=== PATIENT | male | born 1990 | race Caucasian/White ===

== ENCOUNTER 2018-07-23 14:46 | Emergency (ER) | payer OTHER ==
[2018-07-23] MEDS ORDERED: Ketorolac 60 MG/2 ML SDV IM ONE (14:59)
--- NOTE | 2018-07-23 15:01 | EDM.PDOC ---
ED HPI GENERAL MEDICAL PROBLEM - General Chief Complaint: Genitourinary Problem Stated Complaint: PAIN IN GROIN Time Seen by Provider: 07/23/18 14:58 Source of Information: Reports: Patient History Limitations: Reports: No Limitations - History of Present Illness INITIAL COMMENTS - FREE TEXT/NARRATIVE: HISTORY AND PHYSICAL: History of present illness: Patient is a 27-year-old male who presents to the emergency room with complaints of left testicular swelling and pain 1 week. Patient reports that he noticed this pain while working out approximately one week ago. He states the pain has been constant and nothing makes it better or worse at this time. He denies any concerns of STDs. Denies any penile drainage, lesions, or masses. Patient is able to void without any difficulty or dysuria. Patient denies any fever, chills, headache, change in vision, syncope or near syncope. Denies any chest pain, back pain, shortness of breath or cough. Denies any abdominal pain, nausea, vomiting, diarrhea, constipation or dysuria. Has not noted any blood in urine or stool. Patient has been eating and drinking appropriately. Review of systems: As per history of present illness and below otherwise all systems reviewed and negative. Past medical history: As per history of present illness and as reviewed below otherwise noncontributory. Surgical history: As per history of present illness and as reviewed below otherwise noncontributory. Social history: See social history for further information Family history: As per history of present illness and as reviewed below otherwise noncontributory. Physical exam: General: Well-developed and well-nourished 27-year-old male. Alert and oriented. Nontoxic appearing and in no acute distress. HEENT: Atraumatic, normocephalic, pupils equal and reactive bilaterally, negative for conjunctival pallor or scleral icterus, mucous membranes moist, TMs normal bilaterally, throat clear, neck supple, nontender, trachea midline. No drooling or trismus noted. No meningeal signs. No hot potato voice noted. Lungs: Clear to auscultation, breath sounds equal bilaterally, chest nontender. Heart: S1S2, regular rate and rhythm without overt murmur Abdomen: Soft, nondistended, nontender. Negative for masses or hepatosplenomegaly. Negative for costovertebral tenderness. Pelvis: Stable nontender. Genitourinary: This was done with a dental manager at the bedside and consent of the patient. The left testes does appear slightly enlarged in comparison of the right. No erythema noted. Does have tenderness with palpation. Positive cremesenteric reflex bilaterally. Unable to appreciate any hernias with testes exam. Rectal: Deferred. Skin: Intact, warm, dry. No lesions or rashes noted. Extremities: Atraumatic, moves all extremities per self with difficulty or deficits, negative for cords or calf pain. Neurovascular unremarkable. Neuro: Awake, alert, oriented. Cranial nerves II through XII unremarkable. Cerebellum unremarkable. Motor and sensory unremarkable throughout. Exam nonfocal. Notes: Ultrasound shows mild left varicocele. We discussed follow-up with urology. Supportive care measures were reviewed and discussed. Voices understanding and is agreeable to plan of care. Denies any further questions or concerns at this time. Diagnostics: CBC, CMP, UA, testicular/scrotal ultrasound Therapeutics: Toradol IM Prescription: Diclofenac (#30) Impression: Left varicocele Plan: 1. Light activity. Advance as tolerated. 2. Please follow-up with the urologist as we discussed. Return to the ED as needed and as discussed. Definitive disposition and diagnosis as appropriate pending reevaluation and review of above. Left testicle Pain Score (Numeric/FACES): 7 - Related Data Allergies Allergy/AdvReac Type Severity Reaction Status Date / Time No Known Allergies Allergy Verified 07/23/18 14:57 Home Meds: Home Meds . [No Known Home Meds] 07/23/18 [History] ED ROS GENERAL - Review of Systems Review Of Systems: ROS reveals no pertinent complaints other than HPI. ED EXAM, RENAL/ - Physical Exam Exam: See Below (See dictation) Course - Vital Signs Last Recorded V/S: Last Vital Signs Temp 97.1 F 07/23/18 14:57 Pulse 73 07/23/18 14:57 Resp 15 07/23/18 14:57 BP 127/81 07/23/18 14:57 Pulse Ox 97 07/23/18 14:57 - Orders/Labs/Meds Labs: Laboratory Tests 07/23/18 07/23/18 07/23/18 Range/Units 15:08 15:08 16:17 WBC 8.45 (4.0-11.0) K/uL RBC 5.55 (4.50-5.90) M/uL Hgb 16.1 (13.0-17.0) g/dL Hct 47.8 (38.0-50.0) % MCV 86.1 (80.0-98.0) fL MCH 29.0 (27.0-32.0) pg MCHC 33.7 (31.0-37.0) g/dL RDW Std Deviation 42.7 (28.0-62.0) fl RDW Coeff of Delgado 14 (11.0-15.0) % Plt Count 251 (150-400) K/uL MPV 9.30 (7.40-12.00) fL Neut % (Auto) 60.0 (48.0-80.0) % Lymph % (Auto) 27.6 (16.0-40.0) % [place] % (Auto) 9.6 (0.0-15.0) % Eos % (Auto) 2.1 (0.0-7.0) % Baso % (Auto) 0.7 (0.0-1.5) % Neut # (Auto) 5.1 (1.4-5.7) K/uL Lymph # (Auto) 2.3 (0.6-2.4) K/uL [place] # (Auto) 0.8 (0.0-0.8) K/uL Eos # (Auto) 0.2 (0.0-0.7) K/uL Baso # (Auto) 0.1 (0.0-0.1) K/uL Nucleated RBC % 0.0 /100WBC Nucleated RBCs # 0 K/uL Sodium 139 (136-148) mmol/L Potassium 4.1 (3.5-5.1) mmol/L Chloride 103 (98-107) mmol/L Carbon Dioxide 26.2 (21.0-32.0) mmol/L BUN 17 (7.0-18.0) mg/dL Creatinine 1.6 H (0.8-1.3) mg/dL Est Cr Clr Drug Dosing 71.61 mL/min Estimated GFR (MDRD) 52.1 ml/min Glucose 112 H (74-106) mg/dL Calcium 9.0 (8.5-10.1) mg/dL Total Bilirubin 1.0 (0.2-1.0) mg/dL AST 27 (15-37) IU/L ALT 43 (14-63) IU/L Alkaline Phosphatase 69 (46-116) U/L Total Protein 7.6 (6.4-8.2) g/dL Albumin 4.1 (3.4-5.0) g/dL Globulin 3.5 (2.6-4.0) g/dL Albumin/Globulin Ratio 1.2 (0.9-1.6) Urine Color YELLOW Urine Appearance CLEAR Urine pH 6.5 (5.0-8.0) Ur Specific [place] <= 1.005 (1.001-1.035) Urine Protein NEGATIVE (NEGATIVE) mg/dL Urine Glucose (UA) NEGATIVE (NEGATIVE) mg/dL Urine Ketones NEGATIVE (NEGATIVE) mg/dL Urine Occult Blood NEGATIVE (NEGATIVE) Urine Nitrite NEGATIVE (NEGATIVE) Urine Bilirubin NEGATIVE (NEGATIVE) Urine Urobilinogen 0.2 (<2.0) EU/dL Ur Leukocyte Esterase NEGATIVE (NEGATIVE) Meds: Medications Discontinued Medications Generic Name Dose Route Start Last Admin Trade Name Freq PRN Reason Stop Dose Admin Ketorolac Tromethamine 60 mg 07/23/18 14:59 07/23/18 15:08 Toradol IM 07/23/18 15:00 60 mg ONETIME ONE Administration Departure - Departure Time of Disposition: 16:47 Disposition: Home, Self-Care 01 Clinical Impression: Left varicocele - Discharge Information Instructions: Varicocele Referrals: PCP,Unknown [Primary Care Provider] - Forms: ED Department Discharge Additional Instructions: The following information is given to patients seen in the emergency department who are being discharged to home. This information is to outline your options for follow-up care. We provide all patients seen in our emergency department with a follow-up referral. The need for follow-up, as well as the timing and circumstances, are variable depending upon the specifics of your emergency department visit. If you don't have a primary care physician on staff, we will provide you with a referral. We always advise you to contact your personal physician following an emergency department visit to inform them of the circumstance of the visit and for follow-up with them and/or the need for any referrals to a consulting specialist. The emergency department will also refer you to a specialist when appropriate. This referral assures that you have the opportunity for follow-up care with a specialist. All of these measure are taken in an effort to provide you with optimal care, which includes your follow-up. Under all circumstances we always encourage you to contact your private physician who remains a resource for coordinating your care. When calling for follow-up care, please make the office aware that this follow-up is from your recent emergency room visit. If for any reason you are refused follow-up, please contact the [facility] Emergency Department at and asked to speak to the emergency department charge nurse. [facility] [address] [place] [address] [address] [facility] - Urology [address] [place] [id number] 1. Light activity. Advance as tolerated. 2. Please follow-up with the urologist as we discussed. Return to the ED as needed and as discussed.
--- NOTE | 2018-07-23 15:48 | US ---
EXAMINATION: Scrotal duplex ultrasound HISTORY: Left-sided testicular pain COMPARISON: None TECHNIQUE: Grayscale, color Doppler, and spectral Doppler imaging obtained. FINDINGS: The right testicle measures 4.1 cm and left testicle measures 4.3 cm [id number] demonstrate normal color and spectral Doppler flow. Testicular echotexture is normal, no masses. The epididymides appear normal. No hydrocele demonstrated. Mildly prominent less testicular veins. IMPRESSION: 1. Mild left varicocele.
--- NOTE | 2018-07-23 16:09 | US ---
EXAMINATION: Scrotal duplex ultrasound HISTORY: Left-sided testicular pain COMPARISON: None TECHNIQUE: Grayscale, color Doppler, and spectral Doppler imaging obtained. FINDINGS: The right testicle measures 4.1 cm and left testicle measures 4.3 cm [id number] demonstrate normal color and spectral Doppler flow. Testicular echotexture is normal, no masses. The epididymides appear normal. No hydrocele demonstrated. Mildly prominent less testicular veins. IMPRESSION: 1. Mild left varicocele.
== END 2018-07-23 16:57 | disposition home or self-care (01) ==
LOC: MW.ED 14:46
DX: I86.1 Scrotal varices (principal)
CPT/HCPCS: 36415; 76870; 80053; 81003; 85025; 93976; 96372; 99284; J1885; 99283